=== PATIENT | female | born 1985 | race Caucasian/White ===

== ENCOUNTER 2020-12-17 20:15 | Emergency (ER) | payer MEDICAID ==
--- NOTE | 2020-12-17 20:45 | EDM.PDOC ---
ED HPI GENERAL MEDICAL PROBLEM - General Chief Complaint: Abdominal Pain Stated Complaint: STOMACH PAIN Time Seen by Provider: 12/17/20 20:39 Source of Information: Reports: Patient History Limitations: Reports: No Limitations - History of Present Illness INITIAL COMMENTS - FREE TEXT/NARRATIVE: HISTORY AND PHYSICAL: History of present illness: Patient is a 35-year-old female who presents to the emergency room with complaints of low abdominal pain, nausea, vomiting and diarrhea over the past 3 days. Patient states the pain started gradually, describing as a sharp stabbing pain throughout the whole abdomen but worse in the low abdominal region. Denies any injury, trauma or falls. Patient denies any fever, chills, headache, change in vision, syncope or near syncope. Denies any chest pain, back pain, shortness of breath or cough. Denies vaginal bleeding/discharge, concern for , constipation or dysuria. Has not noted any blood in urine or stool. Patient has not been eating and drinking appropriately. No recent sick contacts. Review of systems: As per history of present illness and below otherwise all systems reviewed and negative. Past medical history: As per history of present illness and as reviewed below otherwise noncontributory. Surgical history: As per history of present illness and as reviewed below otherwise noncontributory. Social history: See social history for further information Family history: As per history of present illness and as reviewed below otherwise noncontributory. Physical exam: General: Well developed and well nourished 35 year old female. Alert and orientated x 3. Nontoxic in appearance and in no acute distress. Vital signs are stable and have been reviewed by me. Nursing notes were reviewed. HEENT: Atraumatic, normocephalic, pupils equal and reactive bilaterally, negative for conjunctival pallor or scleral icterus, mucous membranes moist, trachea midline. No drooling or trismus noted. No meningeal signs. No hot potato voice noted. Lungs: Clear to auscultation bilaterally. No wheezes, rales, or rhonchi. Chest nontender. Normal work of breathing, no accessory muscles used. Heart: S1S2, regular rate and rhythm without overt murmur, gallops, or rubs. No JVD. No peripheral edema Abdomen: Soft, nondistended, tenderness in all 4 quadrants. Normoactive bowel sounds. Negative for masses or costovertebral tenderness. Skin: Intact, warm, dry. No lesions or rashes noted. Hematologic: No petechiae or purpra. Mucosa appropriate color and normal nail bed color and refill. Extremities: Atraumatic, moves all extremities per self without difficulty or deficits, negative for cords or calf pain. Neurovascular unremarkable. Neuro: Awake, alert, oriented. Cranial nerves II through XII unremarkable. Cerebellum unremarkable. Motor and sensory unremarkable throughout. Exam nonfocal. Psychiatric: Mood and affect are appropriate. Normal thought process. Answering questions appropriately. Please note that the patient was seen and evaluated during the 2019 SARS-CoV-2 novel coronavirus pandemic period. Community viral transmission is ongoing at time of this encounter and the emergency department is operating under pandemic response procedures. Medical Decision Making: I reviewed the patient's previous ER visits and seen she had been evaluated for abdominal pain with normal work-ups. She has had full lab work-ups, imaging and been given Dilaudid. Her most recent ER visit she was confronted about requesting narcotics and had eloped due to not receiving any medication. I did review the [place] prescription drug monitoring site, patient has had 35 controlled substances filled in the last 9 months by several different providers in [facility]. I did fully evaluate the patient. She states she has significant abdominal pain, nausea, vomiting and diarrhea over the past 3 days. Assessment reveals she has exaggerated tenderness in all 4 quadrants and wincing/tearful with any form of touch. Patient immediately requests Dilaudid for pain management. I did offer to give her some Tylenol or other nonnarcotic options. Patient's demeanor swartz ged and she became aggressive telling me she is "not on a f*ing pain contract... this is bullshit". I told her we could discuss narcotic pain medication after I was able to see some lab work return. Patient continued to be verbally aggressive and does not appear to be in pain anymore. She is physically active int he room, moving around freely. I informed her that I was not comfortable giving her narcotics- at this time I revealed to her that I had reviewed her previous charts noting that she has had full abdominal work ups recently (not sharing that I reviewed her NDPMD). She continued to curse and told me if she wasn't getting Dilaudid she was going somewhere that will - patient left AGAINST MEDICAL ADVICE. Diagnostics: CBC, CMP, Lipase, UA, HCGU, Drug Screen Impression: Drug Seeking Behavior Abdominal pain AGAINST MEDICAL ADVICE Definitive disposition and diagnosis as appropriate pending reevaluation and review of above. Bilateral Lower Abdomen Pain Score (Numeric/FACES): 4 - Related Data Allergies Allergy/AdvReac Type Severity Reaction Status Date / Time methotrexate Allergy Cannot Verified 12/17/20 21:19 Remember Penicillins Allergy Hives Verified 12/17/20 21:19 diphenhydramine AdvReac Tremors Verified 12/17/20 21:19 [From Benadryl] ketorolac [From Toradol] AdvReac Vomiting Verified 12/17/20 21:19 lobster Allergy Swelling Uncoded 12/17/20 21:19 anti inflammatory drugs AdvReac Diarrhea Uncoded 12/17/20 21:19 Home Meds: Home Meds LORazepam [Ativan] 0.5 mg PO BID #10 tablet 07/27/20 [Rx] Nortriptyline 50 mg PO BEDTIME 07/29/20 [History] lamoTRIgine [Lamotrigine] 100 mg PO BEDTIME 07/29/20 [History] Past Medical History HEENT History: Reports: None Cardiovascular History: Reports: None Respiratory History: Reports: None Gastrointestinal History: Reports: None Genitourinary History: Reports: None 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: Polycystic Ovaries, Musculoskeletal History: Reports: RA Neurological History: Reports: None Psychiatric History: Reports: Anxiety, Depression, Other (See Below) (Fibromyalgia) Endocrine/Metabolic History: Reports: None Hematologic History: Reports: None Oncologic (Cancer) History: Reports: None Dermatologic History: Reports: None - Infectious Disease History Infectious Disease History: Reports: None, Chicken Pox, Measles, MRSA - Past Surgical History Female Surgical History: Reports: Section (x 3), D&C, Other (See Below) (Bilaeral laparoscopic salpingectomy 06/24/2020) Social & Family History - Family History Family Medical History: No Pertinent Family History Musculoskeletal: Reports: RA - Caffeine Use Caffeine Use: Reports: Coffee, Soda, Tea ED ROS GENERAL - Review of Systems Review Of Systems: Comprehensive ROS is negative, except as noted in HPI. ED EXAM, GI/ABD - Physical Exam Exam: See Below (See dictation) Course - Vital Signs Last Recorded V/S: Last Vital Signs Temp 97.2 F 12/17/20 21:09 Pulse 81 12/17/20 21:09 Resp 14 12/17/20 21:09 BP 116/72 12/17/20 21:09 Pulse Ox 99 12/17/20 21:09 - Orders/Labs/Meds Orders: Active Orders 24 hr Category Date Time Status CBC WITH AUTO DIFF [HEME] Stat Lab 12/17/20 21:13 Ordered COMPREHENSIVE METABOLIC PN,CMP [CHEM] Stat Lab 12/17/20 21:13 Ordered DRUG SCREEN, URINE [URCHEM] Stat Lab 12/17/20 21:42 Ordered HCG QUALITATIVE,URINE [URCHEM] Stat Lab 12/17/20 21:41 Ordered LIPASE [CHEM] Stat Lab 12/17/20 21:13 Ordered UA RFX HAO AND CULT IF INDIC [URIN] Stat Lab 12/17/20 21:41 Ordered Meds: Medications Discontinued Medications Generic Name Dose Route Start Last Admin Trade Name Freq PRN Reason Stop Dose Admin Acetaminophen 1,000 mg 12/17/20 21:41 Acetaminophen 500 Mg Tab PO 12/17/20 21:42 ONETIME ONE Ondansetron HCl 4 mg 12/17/20 21:40 Ondansetron 4 Mg Tab.Dis PO 12/17/20 21:41 ONETIME ONE Departure - Departure Time of Disposition: 21:56 Disposition: Against Medical Advice 07 Clinical Impression: Drug-seeking behavior, Left against medical advice Abdominal pain Qualifiers: Abdominal location: generalized Qualified Code(s): R10.84 - Generalized abdominal pain - Discharge Information Referrals: PCP,None [Primary Care Provider] - Forms: ED Department Discharge Sepsis Event Note (ED) - Focused Exam Vital Signs: Vital Signs Temp Pulse Resp BP Pulse Ox 12/17/20 21:09 97.2 F 81 14 116/72 99 - My Orders Last 24 Hours: My Active Orders 12/17/20 21:13 CBC WITH AUTO DIFF [HEME] Stat COMPREHENSIVE METABOLIC PN,CMP [CHEM] Stat LIPASE [CHEM] Stat 12/17/20 21:41 UA RFX HAO AND CULT IF INDIC [URIN] Stat 12/17/20 21:41 HCG QUALITATIVE,URINE [URCHEM] Stat 12/17/20 21:42 DRUG SCREEN, URINE [URCHEM] Stat - Assessment/Plan Last 24 Hours: My Active Orders 12/17/20 21:13 CBC WITH AUTO DIFF [HEME] Stat COMPREHENSIVE METABOLIC PN,CMP [CHEM] Stat LIPASE [CHEM] Stat 12/17/20 21:41 UA RFX HAO AND CULT IF INDIC [URIN] Stat 12/17/20 21:41 HCG QUALITATIVE,URINE [URCHEM] Stat 12/17/20 21:42 DRUG SCREEN, URINE [URCHEM] Stat
[2020-12-17 21:19] VITALS: BP 116/72; PULSE 81
[2020-12-17] MEDS ORDERED: Ondansetron 4 MG Tab.DIS PO ONE (21:40)
[2020-12-17] MEDS ORDERED: Acetaminophen 500 MG Tab PO ONE (21:41)
== END 2020-12-17 21:50 | disposition left against medical advice (07) ==
LOC: MW.ED 20:15
DX: R10.84 Generalized abdominal pain (principal); Z53.8 Procedure and treatment not carried out for other reasons; Z76.5 Malingerer [conscious simulation]; Z88.0 Allergy status to penicillin; Z88.6 Allergy status to analgesic agent; Z88.8 Allergy status to other drugs, medicaments and biological substances
CPT/HCPCS: 99283

== ENCOUNTER 2021-01-21 19:43 | Emergency (ER) | payer MEDICAID ==
[2021-01-21] MEDS ORDERED: Sodium Chloride 0.9% 1,000 ML IV ONE (20:07)
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
--- NOTE | 2021-01-21 20:36 | PCM.EKG ---
#1 Interpretation EKG Date: 01/21/21 Time: 20:28 Rhythm: NSR Rate (Beats/Min): 100 [place]: Normal P-Wave: Present QRS: Normal ST-T: Normal QT: Normal [place]/PQ Interval: 119 Comparison: NA - No Prior EKG EKG Interpretation Comments: normal EKG
[2021-01-21 20:39] VITALS: BP 102/54; PULSE 81
== END 2021-01-21 20:45 | disposition home or self-care (01) ==
LOC: MW.ED 19:43
DX: Z13.9 Encounter for screening, unspecified (principal); Z88.8 Allergy status to other drugs, medicaments and biological substances; Z88.0 Allergy status to penicillin; Z88.5 Allergy status to narcotic agent; Z91.018 Allergy to other foods
CPT/HCPCS: 82947; 93005; 99284-25